=== PATIENT | female | born 1985 | race Caucasian/White ===

== ENCOUNTER 2017-03-05 19:24 | Emergency (ER) | payer SELFPAY ==
[~2017-03-05] VITALS: Ht 162.6 cm; Wt 65.0 kg
[2017-03-05 19:25] VITALS: BP 146/88; PULSE 103; RESP 16; TEMP 98.6; O2SAT 96
[2017-03-05] MEDS ORDERED: SODIUM CHLOR 0.9% 1000 ML INJ 1,000 ML IV SCH (20:43)
[2017-03-05] MEDS ORDERED: METOCLOPRAMIDE HCL 10 MG/2 ML VIAL IV PUSH ONE (20:45)
[2017-03-05] MEDS ORDERED: cloNIDine HCL 0.1 MG TAB PO ONE (20:45)
[2017-03-05] MEDS ORDERED: SODIUM CHLORIDE 0.9% FLUSH 10 ML FLUSH IV FLUSH PRN (20:45)
--- NOTE | 2017-03-05 20:48 | PD ---
HPI Chief Complaint: GI Complaint Time Seen by Provider: 20:41 Travel History International Travel<30 days: No Contact w/Intl Traveler<30days: No Traveled to known affect area: No History of Present Illness HPI 32-year-old female here for evaluation of opioid withdrawal. 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 She was taking naltrexone to assist her with opioid sensation. States that today she began having withdrawal symptoms which include nausea, vomiting, jitteriness, bone pain, abdominal cramping. She believes she may be dehydrated. [facility] Past Medical History Immunizations Current: Yes Tetanus Vaccination: Unknown Influenza Vaccination: No ?: Unknown LMP: 02/26/17 Social History Alcohol Use: No Tobacco Use: Yes Substance Use: No Allergies-Medications (Allergen,Severity, Reaction): Coded Allergies: No Known Allergies (Unverified , 03/05/17) Reported Meds & Prescriptions Reported Meds & Active Scripts Active No Active Prescriptions or Reported Medications Review of Systems Except as stated in HPI: all other systems reviewed are Neg Physical Exam Narrative GENERAL: Well-developed, well-nourished, awake, alert, no apparent distress, tremulous. SKIN: Focused skin assessment warm/dry. HEAD: Atraumatic. Normocephalic. EYES: Pupils equal and round. No scleral icterus. No injection or drainage. ENT: Mucous membranes pink and dry. NECK: Trachea midline. No JVD. CARDIOVASCULAR: Tachycardic, regular. No murmur appreciated. RESPIRATORY: No accessory muscle use. Clear to auscultation. Breath sounds equal bilaterally. GASTROINTESTINAL: Abdomen soft, non-tender, nondistended. MUSCULOSKELETAL: No obvious deformities. No clubbing. No cyanosis. No edema. NEUROLOGICAL: Awake and alert. No obvious cranial nerve deficits. Motor grossly within normal limits. Normal speech. PSYCHIATRIC: Appropriate mood and affect; insight and judgment normal. Data Data Last Documented VS Vital Signs Date Time Temp Pulse Resp B/P (MAP) Pulse Ox O2 Delivery O2 Flow Rate FiO2 03/05/17 22:36 70 18 143/95 (111) 03/05/17 21:47 98 Room Air 03/05/17 19:25 98.6 Orders Orders Beta Hcg (Quant/Titer) (03/05/17 20:43) Complete Blood Count With Diff (03/05/17 20:43) Comprehensive Metabolic Panel (03/05/17 20:43) Iv Access Insert/Monitor (03/05/17 20:43) Ecg Monitoring (03/05/17 20:43) Oximetry (03/05/17 20:43) Sodium Chlor 0.9% 1000 Ml Inj (Ns 1000 M (03/05/17 20:43) Sodium Chloride 0.9% Flush (Ns Flush) (03/05/17 20:45) Clonidine (Catapres) (03/05/17 20:45) Metoclopramide Inj (Reglan Inj) (03/05/17 20:45) Potassium Chloride (Kcl) (03/05/17 22:30) Labs Laboratory Tests Test 03/05/17 20:40 White Blood Count 11.1 TH/MM3 Red Blood Count 5.45 MIL/MM3 Hemoglobin 15.7 GM/DL Hematocrit 44.8 % Mean Corpuscular Volume 82.2 FL Mean Corpuscular Hemoglobin 28.8 PG Mean Corpuscular Hemoglobin Concent 35.0 % Red Cell Distribution Width 13.4 % Platelet Count 228 TH/MM3 Mean Platelet Volume 11.3 FL Neutrophils (%) (Auto) 64.1 % Lymphocytes (%) (Auto) 27.4 % Monocytes (%) (Auto) 5.9 % Eosinophils (%) (Auto) 1.7 % Basophils (%) (Auto) 0.9 % Neutrophils # (Auto) 7.1 TH/MM3 Lymphocytes # (Auto) 3.0 TH/MM3 Monocytes # (Auto) 0.7 TH/MM3 Eosinophils # (Auto) 0.2 TH/MM3 Basophils # (Auto) 0.1 TH/MM3 CBC Comment AUTO DIFF Differential Comment AUTO DIFF CONFIRMED Platelet Estimate NORMAL Platelet Morphology Comment NORMAL Blood Urea Nitrogen 6 MG/DL Creatinine 0.82 MG/DL Random Glucose 83 MG/DL Total Protein 8.2 GM/DL Albumin 3.9 GM/DL Calcium Level 9.2 MG/DL Alkaline Phosphatase 70 U/L Aspartate Amino Transf (AST/SGOT) 33 U/L Alanine Aminotransferase (ALT/SGPT) 54 U/L Total Bilirubin 0.4 MG/DL Sodium Level 142 MEQ/L Potassium Level 3.2 MEQ/L Chloride Level 108 MEQ/L Carbon Dioxide Level 25.9 MEQ/L Anion Gap 8 MEQ/L Estimat Glomerular Filtration Rate 81 ML/MIN Human Chorionic Gonadotropin, Quant LESS THAN 1 MIU/ML MDM Medical Decision Making Medical Screen Exam Complete: Yes Emergency Medical Condition: Yes Differential Diagnosis Opioid withdrawal, dehydration, metabolic abnormality, Narrative Course Vital signs reviewed. CBC: WBC 11.1, hemoglobin 15.7, hematocrit 44.8, platelets 228. CMP is remarkable for potassium 3.2 which was replaced orally, otherwise essentially unremarkable. Beta hCG is negative. The patient was given a liter of normal saline IV, IV Reglan, and oral clonidine. On reassessment she is resting comfortably. She is tolerating Gatorade. Potassium replaced orally. She is suffering from opiate withdrawal which she has been through in the past. I will give her a prescription for clonidine as well as Zofran to help manage her symptoms. I will give her the information to [facility] where she can follow-up tomorrow. She was advised on when to return to the emergency department. She verbalizes understanding and agreement with plan. Diagnosis Primary Impression: Opiate withdrawal Additional Impression: Hypokalemia Referrals: Primary Care Physician 2 days [facility] 1 day Additional Instructions: Follow-up with a primary care physician this week. Follow-up at [facility] tomorrow for assistance with detox. Return to the emergency department for worsening symptoms or any other concerns. Scripts Ondansetron Odt (Zofran Odt) 4 Mg Tab 4 MG SL Q8HR Y for Nausea/Vomiting, #30 TAB 0 Refills Prov: cJ Cordova MD 03/05/17 Clonidine (Clonidine) 0.1 Mg Tab 0.1 MG PO TID for Blood Pressure Management, #15 TAB 0 Refills Prov: Jc Cordova MD 03/05/17 Disposition: 01 DISCHARGE HOME Condition: Stable Jc Cordova MD Mar 05, 2017 20:48
[2017-03-05 21:29] LABS: AUTOMATED NEUTROPHIL # 7.1 TH/MM3 (1.8-7.7); BASOPHIL # 0.1 TH/MM3 (0-0.2); BASOPHIL % 0.9 % (0.0-2.0); EOSINOPHIL # 0.2 TH/MM3 (0-0.4); EOSINOPHIL % 1.7 % (0.0-4.0); HEMATOCRIT 44.8 % (35.0-46.0); LYMPH % 27.4 % (9.0-44.0); MEAN CELL VOLUME 82.2 FL (80.0-100.0); MEAN CORPUSCULAR HEMOGLOBIN 28.8 PG (27.0-34.0); MONO % 5.9 % (0.0-8.0); NEUT % 64.1 % (16.0-70.0); PLATELET COUNT 228 TH/MM3 (150-450); RED BLOOD COUNT 5.45 MIL/MM3 (4.00-5.30); RED CELL DISTRIBUTION WIDTH 13.4 % (11.6-17.2); WHITE BLOOD COUNT 11.1 TH/MM3 (4.0-11.0)
[2017-03-05 21:35] LABS: HEMO FLAGS AUTO DIFF
[2017-03-05 21:47] VITALS: BP 132/78; PULSE 59; RESP 16; O2SAT 98
[2017-03-05 21:53] LABS: ALT (GPT) 54 U/L (10-53)
[2017-03-05 21:56] LABS: ANION GAP 8 MEQ/L (5-15); AST (GOT) 33 U/L (15-37); BICARBONATE 25.9 MEQ/L (21.0-32.0); BLOOD UREA NITROGEN 6 MG/DL (7-18); CHLORIDE 108 MEQ/L (98-107); GLOMERULAR FILTRATION RATE 81 ML/MIN (>89); POTASSIUM 3.2 MEQ/L (3.5-5.1); SODIUM (NA) 142 MEQ/L (136-145)
[2017-03-05 21:58] LABS: ALKALINE PHOSPHATASE 70 U/L (45-117); BETA HCG QUANT LESS THAN 1 MIU/ML (0-5); TOTAL BILIRUBIN ADULT 0.4 MG/DL (0.2-1.0)
[2017-03-05 22:02] LABS: PLATELET ESTIMATE SMEAR NORMAL (NORMAL); PLATELET MORPHOLOGY NORMAL (NORMAL); SCAN/DIFF AUTO DIFF CONFIRMED
[2017-03-05] MEDS ORDERED: POTASSIUM CHLORIDE 20 MEQ CONTROLLED RELEASE TAB PO ONE (22:30)
[2017-03-05 22:36] VITALS: BP 143/95; PULSE 70; RESP 18
[2017-03-05] MEDS ORDERED: CLON0.1T PO (22:44)
[2017-03-05] MEDS ORDERED: ZOFR4TAB3 SL (22:44)
== END 2017-03-05 23:13 | disposition home or self-care (01) ==
LOC: NEPD 19:24
DX: F11.23 Opioid dependence with withdrawal (principal); E87.6 Hypokalemia; Z72.0 Tobacco use
CPT/HCPCS: 80053; 84702; 85025; 96361; 96374; 99284; J2765; J7030